=== PATIENT | female | born 1985 | race Caucasian/White ===

== ENCOUNTER 2017-03-23 15:18 | Outpatient (CLI) | payer BC ==
--- NOTE | 2017-03-23 16:15 | Non Stress Test Report ---
Non Stress Test Datetime Report Generated by CPN: 03/23/2017 16:15 DEMOGRAPHIC EGA NST: 39.2 INDICATION Indication for Study: Ordered by Provider VITAL SIGNS Temperature - NST: 98.0 Pulse - NST: 80 RESP - NST: 18 NBPSYS NST: 130 MONITORING Monitor Explained: Monitor Explained; Test Explained; Patient Verbalized Understanding Time on Monitor: 03/23/2017 15:30 Time off Monitor: 03/23/2017 16:09 NST Duration: 39 NST INTERVENTIONS NST Interventions: PO Hydration; Reposition Patient Physician Notified NST: C Nielsen CNM BABY A: [id number] BABY A Movement : Present Contraction Frequency : denies FHR Baseline : 120 Accelerations : 15X15 Decelerations : None Variability : Moderate 6-25bpm NST Review: Meets Criteria for Reactive NST NST Review and Verified By : Divine Lema RN NST Results: Reactive NST REPORT Report Trigger: Send Report
== END 2017-03-23 16:23 | disposition home or self-care (01) ==
LOC: LC 15:18
PROVIDERS: ATTEND Specialist
DX: O26.93 Pregnancy related conditions, unspecified, third trimester (principal); Z3A.39 39 weeks gestation of pregnancy
CPT/HCPCS: 59025

== ENCOUNTER 2017-03-24 19:58 | Inpatient (IN) | payer BC ==
[2017-03-24] MEDS ORDERED: RINGERS SOLUTION,LACTATED 1,000 ML IV PRN (20:15)
[2017-03-24] MEDS ORDERED: MAG HYDROX/AL HYDROX/SIMETH SUSP 30 ML UDCUP PO PRN (20:15)
[2017-03-24] MEDS ORDERED: ACETAMINOPHEN 325 MG TABLET PO PRN (20:15)
[2017-03-24] MEDS ORDERED: ZOLPIDEM TARTRATE 5 MG TABLET PO PRN (20:15)
[2017-03-24] MEDS ORDERED: OXYTOCIN/NORMAL SALINE 1,000 ML IV PRN (20:15)
[2017-03-24] MEDS ORDERED: DINOPROSTONE 10 MG VAGINAL INSERT.SR PV ONE (20:15)
[2017-03-24] MEDS ORDERED: RINGERS SOLUTION,LACTATED 300 ML IV ONE (20:15)
[2017-03-24 20:55] LABS: ABSOLUTE LYMPHOCYTES (AUTO) 1.9 10^3/uL (0.5-4.7); ABSOLUTE MONOCYTES (AUTO) 0.4 10^3/uL (0.1-1.4); ABSOLUTE NEUT (AUTO) 4.4 10^3/uL (1.7-8.2); BASOPHILS % (AUTO) 0.4 % (0-2); EOSINOPHILS % (AUTO) 0.6 % (0-6); HEMATOCRIT 37.2 % (36.0-47.0); HEMOGLOBIN 12.7 g/dL (12.0-15.5); HGB HCT DIFFERENCE 0.9; LYMPHOCYTES % (AUTO) 27.8 % (13-45); MEAN CORPUSCULAR HEMOGLOBIN 29.4 pg (27.0-33.4); MEAN CORPUSCULAR VOLUME 87 fl (80-97); MONOCYTES % (AUTO) 5.9 % (3-13); RED CELL DISTRIBUTION WIDTH 15.7 % (11.5-14.0); SEGMENTED NEUTROPHILS % (AUTO) 65.3 % (42-78); WHITE BLOOD COUNT 6.7 10^3/uL (4.0-10.5)
[2017-03-24 21:08] LABS: APPEARANCE,URINE CLOUDY; BILIRUBIN,URINE NEGATIVE (NEGATIVE); GLUCOSE, URINE 50 mg/dL (NEGATIVE); KETONES,URINE TRACE mg/dL (NEGATIVE); LEUKOCYTE ESTERASE,URINE NEGATIVE (NEGATIVE); NITRITE,URINE NEGATIVE (NEGATIVE); PROTEIN,URINE 100 mg/dL (NEGATIVE); URINE SPECIFIC GRAVITY 1.036; UROBILINOGEN,URINE NEGATIVE mg/dL (<2.0)
[2017-03-24 21:29] LABS: URINE BARBITURATES SCREEN NEGATIVE; URINE METHADONE SCREEN NEGATIVE; URINE OPIATES LOW NEGATIVE; URINE PHENCYCLIDINE SCREEN NEGATIVE
[2017-03-24] MEDS ORDERED: DINOPROSTONE 10 MG VAGINAL INSERT.SR ONE (21:34)
[2017-03-25 08:37] LABS: ABSOLUTE LYMPHOCYTES (AUTO) 1.5 10^3/uL (0.5-4.7); ABSOLUTE MONOCYTES (AUTO) 0.4 10^3/uL (0.1-1.4); ABSOLUTE NEUT (AUTO) 3.5 10^3/uL (1.7-8.2); BASOPHILS % (AUTO) 0.4 % (0-2); EOSINOPHILS % (AUTO) 0.4 % (0-6); HEMATOCRIT 37.3 % (36.0-47.0); HEMOGLOBIN 12.7 g/dL (12.0-15.5); HGB HCT DIFFERENCE 0.8; MEAN CORPUSCULAR HEMOGLOBIN 29.6 pg (27.0-33.4); MEAN CORPUSCULAR HGB CONC 34.1 g/dL (32.0-36.0); MEAN CORPUSCULAR VOLUME 87 fl (80-97); RED CELL DISTRIBUTION WIDTH 15.3 % (11.5-14.0); SEGMENTED NEUTROPHILS % (AUTO) 64.2 % (42-78); WHITE BLOOD COUNT 5.5 10^3/uL (4.0-10.5)
[2017-03-25 08:52] LABS: ALANINE AMINOTRANSFERASE 19 U/L (9-52); ALBUMIN 2.7 g/dL (3.5-5.0); ALKALINE PHOSPHATASE 144 U/L (38-126); ANION GAP 8 (5-19); ASPARTATE AMINO TRANSFERASE 18 U/L (14-36); BILIRUBIN,DIRECT 0.2 mg/dL (0.0-0.4); BILIRUBIN,TOTAL 0.3 mg/dL (0.2-1.3); BLOOD UREA NITROGEN 7 mg/dL (7-20); CALCIUM 8.8 mg/dL (8.4-10.2); CARBON DIOXIDE 21 mmol/L (22-30); CHLORIDE 109 mmol/L (98-107); CREATININE RESULT 0.59 mg/dL (0.52-1.25); GLUCOSE 95 mg/dL (75-110); LDH 342 U/L (313-618); POTASSIUM 3.9 mmol/L (3.6-5.0); SODIUM 137.6 mmol/L (137-145); TOTAL PROTEIN 5.3 g/dL (6.3-8.2); URIC ACID 5.5 mg/dL (2.5-6.2)
--- NOTE | 2017-03-25 08:54 | L&D Progress Notes ---
PROGRESS NOTES Datetime Report Generated by CPN: 03/25/2017 08:54 PROGRESS NOTE Impression: Gest. HTN/PreEclampsia/Eclampsia Procedures: Sterile Vag Exam Plan: Continue Present Management; Induction; Cervical Ripening Informed Consent Obtained: Vaginal Delivery; Section Delivery; Risks, Benefits and Alternatives Discussed Vital Signs : Reviewed Comment: 32 yo admitted for induction secondary to chronic vs. 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 denies any recent outbreaks EFW 8.5 lbs bps normotensive dtrs +2 no clonus minimal swelling cervidil removed plan to start pitocin after one hour and insert brock bulb catheter poc reviewed with pt and spouse VAGINAL EXAM Dilatation: 1 Dilatation: 0 Effacement: 25 Effacement: 0 Station: -2 Station: -3 MEMBRANES Membranes: Intact FETUS A FHR - Baseline: 120 Monitoring: External US Variability: Moderate 6-25bpm Accelerations: 15X15 Decelerations: None FHR Category: Category I : 39.4 : 39.4 Estimated Weight (gm): 3775 Presentation: Vertex SIGNATURE SIGNATURE: [id number] SIGNATURE: [id number] Assignment: Muna Snider MD Signature: with User ID: [email or web address] : with User ID: [email or web address]
[2017-03-25] MEDS ORDERED: MISOPROSTOL 0.1 MG TABLET ONE (10:01)
--- NOTE | 2017-03-25 10:24 | L&D Progress Notes ---
PROGRESS NOTES Datetime Report Generated by CPN: 03/25/2017 10:23 PROGRESS NOTE Procedures: Sterile Vag Exam Procedures- Other: brock bulb catheter Plan: Continue Present Management; Induction; Cervical Ripening Informed Consent Obtained: Vaginal Delivery; Induction of Labor; Risks, Benefits and Alternatives Discussed Vital Signs : Reviewed Comment: consent for mechanical ripening discussed and received from pt cytotec 50 mcg po x 1 brock bulb catheter placed 80/80 //-2 sterile speculum exam - no lesions noted cervix moderately soft abdomen nontender FHTs 130s average variability plan to recheck in 4 hours and start pitocin reviewed with pt all questions answered anticpate VAGINAL EXAM Dilatation: 2 Effacement: 30 Station: -2 MEMBRANES Membranes: Intact FETUS A Monitoring: External US Accelerations: 15X15 Decelerations: None FHR Category: Category I FETUS C SIGNATURE: [id number] Assignment: Muna Snider MD Signature: with User ID: [email or web address] : with User ID: [email or web address]
[2017-03-25] MEDS ORDERED: MISOPROSTOL 0.1 MG TABLET PO ONE (10:25)
[2017-03-25] MEDS ORDERED: OXYTOCIN/NORMAL SALINE 20 UNIT/1,000 ML RTUINJ ONE ×2 (13:27→20:28)
--- NOTE | 2017-03-25 14:56 | L&D Progress Notes ---
PROGRESS NOTES Datetime Report Generated by CPN: 03/25/2017 14:55 PROGRESS NOTE Impression: Normal Progression of Labor Procedures: Artificial ROM; Sterile Vag Exam Plan: Continue Present Management; Induction; Anticipate Vaginal Delivery Informed Consent Obtained: Vaginal Delivery; Induction of Labor; Risks, Benefits and Alternatives Discussed Vital Signs : Reviewed; Within Normal Limits Comment: Pt here for IOL at 39+4ega fro CHTN. HSV no lesions and no prodrome on admission. On valtrex at 36wks. GBS pos on PCN for GSB prophy. EFW 7.5-8#. Normal informaseq. Admitted last evening for IOL with cervidil then this am cytotec and Cooks Catheter. Cooks catheter came out at 1330. Cvx now and AROM performed. Will continue with position changes and anticipate . VAGINAL EXAM Dilatation: 5 Effacement: 70 Station: -2 Contractions: q2 MEMBRANES Membranes: Ruptured Amniotic Fluid Color: Clear FETUS A FHR - Baseline: 140 Monitoring: External US Variability: Moderate 6-25bpm Accelerations: 15X15 Decelerations: None FHR Category: Category I FETUS C SIGNATURE: [id number];[id number] Signature: with User ID: [email or web address]
[2017-03-25] MEDS ORDERED: PENICILLIN G-K 5 MILLION UNIT VIAL ONE ×2 (15:00→17:57)
[2017-03-25] MEDS ORDERED: EPHEDRINE SULFATE INJ 50 MG/1 ML AMPULE ONE (15:53)
[2017-03-25] MEDS ORDERED: BUPIVACAINE HCL 0.25 % INJ/PF (2.5 MG/1 ML) 30 ML VIAL ONE (15:54)
[2017-03-25] MEDS ORDERED: FENTANYL/BUPIVACAINE/NS/PF 200 MCG/100 ML RTUINJ EPI ONE (15:54)
[2017-03-25] MEDS ORDERED: MISOPROSTOL 0.2 MG TABLET ONE (20:28)
[2017-03-25] MEDS ORDERED: LIDOCAINE 1% INJ-PF (10 MG/ML) 30 ML SDV ONE (20:28)
[2017-03-26] MEDS ORDERED: DIBUCAINE 1% OINTMENT 28 GM TP PRN (01:18)
[2017-03-26] MEDS ORDERED: ZOLPIDEM TARTRATE 5 MG TABLET PO PRN ×2 (01:18→15:07)
[2017-03-26] MEDS ORDERED: MAGNESIUM HYDROXIDE SUSP 30 ML UDCUP PO PRN (01:18)
[2017-03-26] MEDS ORDERED: PROMETHAZINE HCL INJ 25 MG/1 ML VIAL IV PRN ×2 (01:18→15:11)
[2017-03-26] MEDS ORDERED: GLYCERIN/WITCH HAZEL LEAF 1 EACH MED..PAD TP PRN (01:18)
[2017-03-26] MEDS ORDERED: PROMETHAZINE HCL 25 MG SUPP.RECT PR PRN (01:18)
[2017-03-26] MEDS ORDERED: PSEUDOEPHEDRINE HCL 30 MG TABLET PO PRN (01:18)
[2017-03-26] MEDS ORDERED: NA PHOS,M-B/NA PHOS,DI-BA (ADULT) 133 ML ENEMA PR PRN (01:18)
[2017-03-26] MEDS ORDERED: MEASLES,MUMPS&RUBELLA VACC/PF 0.5 ML VIAL SUBCUT PRN ×2 (01:18→15:10)
[2017-03-26] MEDS ORDERED: DIPHENHYDRAMINE HCL 25 MG CAPSULE PO PRN (01:18)
[2017-03-26] MEDS ORDERED: ACETAMINOPHEN WITH CODEINE #3 TABLET PO PRN ×2 (01:18)
[2017-03-26] MEDS ORDERED: ACETAMINOPHEN 650 MG SUPP.RECT PR PRN (01:18)
[2017-03-26] MEDS ORDERED: OXYTOCIN/NORMAL SALINE 1,000 ML IV PRN (01:18)
[2017-03-26] MEDS ORDERED: PROMETHAZINE HCL 25 MG TABLET PO PRN (01:18)
[2017-03-26] MEDS ORDERED: DIPH/PERTUSS(ACELL)/TETANUS VAC/PF 0.5 ML SYR (>=10YO) IM PRN ×2 (01:18→15:09)
[2017-03-26] MEDS ORDERED: BENZOCAINE/MENTHOL AEROSOL SPRAY 56 ML TOP PRN (01:18)
[2017-03-26] MEDS ORDERED: IBUPROFEN 800 MG TABLET ONE (02:36)
--- NOTE | 2017-03-26 03:09 | Delivery Summary ---
Del Sum A-C Datetime Report Generated by CPN: 03/26/2017 03:09 DELIVERY PERSONNEL DELIVERY PERSONNEL: [id number] Delivery Doctor:: Muna Snider MD Labor and Delivery Nurse:: Dacia Solomon RNlehr stripper Nurse:: Demetrice Flowers RN Nursery Nurse:: Shayla Newell RN MSN Nursery Nurse:: Marie Grossman RN MATERNAL INFORMATION Delivery Anesthesia: Epidural Medications After Delivery: Pitocin Bolus-Please Comment Estimated Blood Loss (ml): 300 Maternal Complications: Prolonged Second Stage > 2 Hrs Provider Comments: VFI delivered in K[place] presentation. No nuchal cord. SHoulders and body delivered without difficulty. Cord doubly clamped and cut and to maternal abd for NRP. Placenta delivered intact spontaneously. Uterus empty and placenta intact. FF at U and good hemostasis post repair of 1st degree perineal laceration. APgars and weight pending. Mother and baby stable upon provider leaving the room. LABOR SUMMARY EDC: 03/28/2017 00:00 Attempted: No Labor Anesthesia: Epidural LABOR INFORMATION Reason for Induction: Gestational Hypertension Onset of Labor: 03/25/2017 17:14 Complete Dilatation: 03/25/2017 20:28 Cervical Ripening Agents: Cervidil; Cytotec @ Oxytocin: Induction Group B Beta Strep: positive Antibiotics # of Doses: 2 Antibiotics Time of Last Dose: 1819 Name of Antibiotic Given: Penicillin Steroids Given: None Reason Steroids Not Administered: Not Applicable MEMBRANES Membranes Rupture Method: Artificial Rupture of Membranes: 03/25/2017 14:43 Length of Rupture (hr): 10.20 Amniotic Fluid Color: Clear Amniotic Fluid Amount: Small Amniotic Fluid Odor: Normal STAGES OF LABOR Stage 1 hr: 3 Stage 1 min: 14 Stage 2 hr: 4 Stage 2 min: 27 Stage 3 hr: 0 Stage 3 min: 3 Total Time in Labor hr: 7 Total Time in Labor min: 44 VAGINAL DELIVERY Episiotomy: None Laceration Extension: First Degree Laceration Type: Perineal Laceration Repair: Yes Sponge Count Correct: N/A Sharps Count Correct: N/A CSECTION DELIVERY Primary Indication: N/A Secondary Indication: N/A CSection Incidence: N/A Labor: N/A Elective: N/A CSection Incision: N/A BABY A INFORMATION Infant Delivery Date/Time: 03/26/2017 00:55 Method of Delivery: Vaginal Born in Route : No : N/A Forceps: N/A Vacuum Extraction: N/A Shoulder Dystocia : No PRESENTATION/POSITION BABY A Presentation: Cephalic Cephalic Presentation: Vertex Vertex Position: Left Occipital Anterior Breech Presentation: N/A PLACENTA INFORMATION BABY A Placenta Delivery Time : 03/26/2017 00:58 Placenta Method of Delivery: Spontaneous Placenta Status: Delivered SCORES BABY A Heart Rate 1 min: >100 bpm Resp Effort 1 min: Good Cry Reflex Irritability 1 min: Cough or Sneeze or Pulls Away Muscle Tone 1 min: Active Motion Color 1 min: Body [place], Extremities Blue Resuscitation Effort 1 min: Tactile Stimulation SCORE 1 MIN: 9 Heart Rate 5 min: >100 bpm Resp Effort 5 min: Good Cry Reflex Irritability 5 min: Cough or Sneeze or Pulls Away Muscle Tone 5 min: Active Motion Color 5 min: Body [place], Extremities Blue Resuscitation Effort 5 min: Tactile Stimulation SCORE 5 MIN: 9 INFANT INFORMATION BABY A Gestational Age at Delivery: 39.4 Gestational Status: Full Term- 39- 40.6 Weeks Outcome : Liveborn Infant Condition : Stable Infant Sex: Female IDENTIFICATION BABY A Infant Verification Date/Time: 03/26/2017 01:22 ID Band Number: [id number] Mother's Name Verified: Yes Infant WEIGHT/LENGTH BABY A Infant Birthweight (gm): 3610 Infant Weight (lb): 7 Infant Weight (oz): 15 Infant Length (in): 21.75 Infant Length (cm): 55.25 CORD INFORMATION BABY A No. Cord Vessels: 3 Nuchal Cord : N/A Cord Blood Taken: Yes-For Storage (Mom's Blood type +) Suction: None ASSESSMENT BABY A Skin to Skin: Yes Skin to Skin Time (min): 60 SIGNATURES Signature: with User ID: [email or web address]
--- NOTE | 2017-03-26 03:14 | Admission Physical ---
Datetime Report Generated by CPN: 03/26/2017 03:14 CURRENT ADMISSION Chief Complaint: Scheduled Induction of Labor Indication for Induction: Gestational HTN Admit Plan: Admit to Unit; Initiate Labor Induction Protocol ALLERGIES Medication Allergies: No Latex: No Latex Allergies OBSTETRICAL HISTORY EDC: 03/28/2017 00:00 : 1 Para: 0 Term: 0 : 0 SAB: 0 IAB: 0 Livin Gestational Diabetes: No Rh Sensitization: No Incompetent Cervix: No NATE: No Infertility: No ART Treatment: No Uterine Anomaly: No IUGR: No Hx Previous C/S: No Macrosomia: No Hx Loss/Stillborn: No PIH: No Hx : No Placenta Previa/Abruption: No Depression/PP Depression: No PTL/PROM: No Post Hemorrhage: No Current Procedures: Ultrasound SEE RECORDS Alcohol: No Marijuana : No Cocaine: No Other Illicit Drugs: No Cigarettes: Never Smoker. 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 is taking valtrex PHYSICAL EXAM General: Normal HEENT: Normal Neurologic: Normal Thyroid: Deferred Heart: Normal Lungs: Normal Breast: Deferred Back: Normal Abdomen: Normal Genitourinary Exam: Normal Extremities: Normal DTRs: Normal Pelvic Type: Adequate Vital Signs: Reviewed; Within Normal Limits VAGINAL EXAM Dilatation: 5 Dilatation: 2 Dilatation: 1 Dilatation: 0 Effacement: 70 Effacement: 30 Effacement: 25 Effacement: 0 Station: -2 Station: -2 Station: -2 Station: -3 Contraction Comments: q2 MEMBRANES Membranes: Ruptured Membranes: Intact Membranes: Intact Amniotic Fluid Color: Clear FETUS A EGA: 39.4 Monitoring: External US FHR- Baseline: 125 Variability: Moderate 6-25bpm Accelerations: 15X15 Decelerations: None FHR Category: Category I Estimated Weight (gm): 3775 Presentation: Vertex Admit Comment: PCN for +GBS PLANS FOR LABOR AND DELIVERY Labor and Delivery: None Pain Management: Epidural Other Pain Management Plans: Wants to try natural, if too much pain-Epidural. Feeding Preference: Breast Benefit of Breast Feed Discussed: Yes Circumcision: N/A INFORMED CONSENT Informed Consent Obtained: Vaginal Delivery; Induction of Labor; Risks, Benefits and Alternatives Discussed Informed Consent Obtained: Vaginal Delivery; Induction of Labor; Risks, Benefits and Alternatives Discussed Informed Consent Obtained: Vaginal Delivery; Section Delivery; Risks, Benefits and Alternatives Discussed Signature: with User ID: [email or web address]
[2017-03-26] MEDS: IBUPROFEN 800 MG TABLET PO SCH ×3 (06:10→21:52)
--- NOTE | 2017-03-26 08:53 | PDOC PROGRESS REPORT ---
Subjective-OB Subjective: Post Delivery Day: 32 year old. Denies any needs at this time Doing well, no c/o, voiding, normal lochia, breast feeding, feeling well Physical Exam (OB) Vital Signs: Temp Pulse Resp BP Pulse Ox 97.9 F 87 20 126/81 H 99 03/26/17 03:18 03/26/17 03:18 03/26/17 03:18 03/26/17 03:18 03/26/17 03:18 Intake & Output 03/25/17 03/26/17 03/27/17 06:59 06:59 06:59 Weight 83.2 kg - Lochia Lochia Amount: Small 10-25 ml Lochia Color: Rubra/Red - Abdomen Description: Soft, Round Hernia Present: No Fundal Description: Firm, Midline Fundal Height: u/u - u/2 Objective-Diagnostic Laboratory: 03/25/17 08:26 03/25/17 08:26 03/25/17 08:26 Sodium 137.6 Potassium 3.9 Chloride 109 H Carbon Dioxide 21 L Anion Gap 8 BUN 7 Creatinine 0.59 Est GFR ( Amer) > 60 Est GFR (Non-Af Amer) > 60 Glucose 95 Uric Acid 5.5 Calcium 8.8 Total Bilirubin 0.3 AST 18 ALT 19 Alkaline Phosphatase 144 H Total Protein 5.3 L Albumin 2.7 L Assessment and Plan(PN) - Assessment and Plan (1) Gestational [-induced] hypertension without significant proteinuria , unspecified trimester Qualifiers: Trimester: unspecified trimester Is this a current diagnosis for this admission?: Yes (3) Normal vaginal delivery Is this a current diagnosis for this admission?: Yes - Time Spent with Patient Time with patient: Less than 15 minutes Medications reviewed and adjusted accordingly: Yes - Disposition Anticipated Discharge: Home Within: within 48 hours
[2017-03-26] MEDS: SENNOSIDES/DOCUSATE 8.6-50 MG 1 EACH TABLET PO SCH (10:29)
[2017-03-26] MEDS: FERROUS SULFATE 325 MG TABLET PO SCH ×2 (10:30→18:14)
[2017-03-26] MEDS: PRENATAL VITAMIN W-O CA NO5/FE FUMARATE/FA CAPSULE PO SCH (10:30)
[2017-03-26] MEDS: DOCUSATE SODIUM 100 MG CAPSULE PO SCH ×2 (10:30→18:15)
[2017-03-26] MEDS: FAMOTIDINE 20 MG TABLET PO SCH ×2 (10:54→21:51)
[2017-03-27] MEDS: IBUPROFEN 800 MG TABLET PO SCH ×3 (06:56→21:51)
[2017-03-27 08:01] LABS: HEMATOCRIT 33.2 % (36.0-47.0); HEMOGLOBIN 11.2 g/dL (12.0-15.5); HGB HCT DIFFERENCE 0.4; MEAN CORPUSCULAR HEMOGLOBIN 29.4 pg (27.0-33.4); MEAN CORPUSCULAR HGB CONC 33.8 g/dL (32.0-36.0); MEAN CORPUSCULAR VOLUME 87 fl (80-97); RED BLOOD COUNT 3.81 10^6/uL (3.72-5.28)
[2017-03-27] MEDS: PRENATAL VITAMIN W-O CA NO5/FE FUMARATE/FA CAPSULE PO SCH (09:20)
[2017-03-27] MEDS: DOCUSATE SODIUM 100 MG CAPSULE PO SCH ×2 (09:20→17:29)
[2017-03-27] MEDS: SENNOSIDES/DOCUSATE 8.6-50 MG 1 EACH TABLET PO SCH (09:20)
[2017-03-27] MEDS: FERROUS SULFATE 325 MG TABLET PO SCH ×2 (09:20→17:29)
[2017-03-27] MEDS: FAMOTIDINE 20 MG TABLET PO SCH ×2 (09:21→21:52)
--- NOTE | 2017-03-27 09:27 | PDOC PROGRESS REPORT ---
Subjective-OB Subjective: Post Delivery Day:1 32 year old. Denies any needs at this time, lochia is stable, pain well controlled, voiding without difficulty. Physical Exam (OB) Vital Signs: Temp Pulse Resp BP Pulse Ox 97.8 F 72 18 137/90 H 100 03/27/17 08:00 03/27/17 08:00 03/27/17 08:00 03/27/17 08:00 03/27/17 08:00 Intake & Output 03/26/17 03/27/17 03/28/17 06:59 06:59 06:59 Intake Total 300 Output Total 1000 Balance -700 - PIH/Pre-Eclampsia DTR's: 1 + Clonus: Negative Headache: Absent Epigastric Pain: No Visual Changes: No - Lochia Lochia Amount: Small 10-25 ml Lochia Color: Rubra/Red - Abdomen Description: Soft, Round Hernia Present: No Fundal Description: Firm, Midline Fundal Height: u/u - u/2 Objective-Diagnostic Laboratory: 03/27/17 07:20 03/25/17 08:26 03/27/17 07:20 WBC 8.0 RBC 3.81 Hgb 11.2 L Hct 33.2 L MCV 87 MCH 29.4 MCHC 33.8 RDW 16.0 H Plt Count 195 Assessment and Plan(PN) - Assessment and Plan (1) Gestational [-induced] hypertension without significant proteinuria , unspecified trimester Qualifiers: Trimester: unspecified trimester Is this a current diagnosis for this admission?: YesPlan: monitor bp and s/sx (2) History of TEE positive for HSV Is this a current diagnosis for this admission?: YesPlan: valtex (3) Normal vaginal delivery Is this a current diagnosis for this admission?: YesPlan: routine pp care - Time Spent with Patient Time with patient: Less than 15 minutes Critical Time spent with patient: Less than 15 minutes Medications reviewed and adjusted accordingly: Yes - Disposition Anticipated Discharge: Home Within: within 24 hours
[2017-03-28] MEDS: IBUPROFEN 800 MG TABLET PO SCH ×2 (05:00→13:20)
--- NOTE | 2017-03-28 09:25 | PDOC DISCHARGE SUMMARY ---
Final Diagnosis Discharge Date: 03/28/17 - Final Diagnosis (1) Gestational [-induced] hypertension without significant proteinuria , unspecified trimester Is this a current diagnosis for this admission?: Yes (2) History of TEE positive for HSV Is this a current diagnosis for this admission?: Yes (3) Normal vaginal delivery Is this a current diagnosis for this admission?: Yes Discharge Data - Discharge Medication Home Medications: Valacyclovir HCl [Valacyclovir] 1,000 mg PO BID #20 tablet 05/18/16 Vit/Iron Fumarate/FA [ Tablet] 1 tab PO DAILY 03/24/17 Reason(s) for Admission: Induction of Labor, PIH, Group B Strep Positive Procedures: NST Intrapartum Procedure(s): Spontaneous Vaginal Delivery Complication(s): Laceration-Perineal Laceration-Degree: 1st - Data Baby 1 Female at 1 minute: 9 at 5 minutes: 9 Weight: 3610 kg Home with Mother: Yes Complications: No - Diagnosis Test Laboratory: Temp Pulse Resp BP Pulse Ox 98.5 F 80 16 139/89 H 99 03/28/17 07:25 03/28/17 07:25 03/28/17 07:25 03/28/17 07:25 03/28/17 07:25 03/24/17 03/24/17 03/25/17 20:12 20:36 08:26 RBC 4.30 4.30 Hgb 12.7 12.7 Hct 37.2 37.3 Urine Opiates Screen NEGATIVE 03/27/17 07:20 RBC 3.81 Hgb 11.2 L Hct 33.2 L Urine Opiates Screen - Discharge information/Instructions Discharge Activity: Activity As Tolerated, Pelvic Rest, No tub bath Discharge Diet: Regular Disposition: HOME, SELF-CARE Follow up with: [facility] in: 1, Weeks
[2017-03-28] MEDS: FERROUS SULFATE 325 MG TABLET PO SCH ×2 (09:37→17:18)
[2017-03-28] MEDS: PRENATAL VITAMIN W-O CA NO5/FE FUMARATE/FA CAPSULE PO SCH (09:38)
[2017-03-28] MEDS: FAMOTIDINE 20 MG TABLET PO SCH (09:38)
[2017-03-28] MEDS: SENNOSIDES/DOCUSATE 8.6-50 MG 1 EACH TABLET PO SCH (09:38)
[2017-03-28] MEDS: DOCUSATE SODIUM 100 MG CAPSULE PO SCH ×2 (09:38→17:18)
[2017-03-28 15:58] VITALS: BP 134/83
== END 2017-03-28 18:25 | disposition home or self-care (01) | DRG 774 ==
LOC: LR 19:58 → 2S 03-26 03:13
PROVIDERS: ADMIT Obstetrics & Gynecology; ATTEND Obstetrics & Gynecology
PROC: 3E0P7GC Introduction of Other Therapeutic Substance into Female Reproductive, Via Natural or Artificial Opening (ICD-10-PCS; 2017-03-24)
PROC: 3E033VJ Introduction of Other Hormone into Peripheral Vein, Percutaneous Approach (ICD-10-PCS; 2017-03-25)
PROC: 10E0XZZ Delivery of Products of Conception, External Approach (ICD-10-PCS; principal; 2017-03-26)
PROC: 4A1HXCZ Monitoring of Products of Conception, Cardiac Rate, External Approach (ICD-10-PCS; 2017-03-26)
DX: O13.4 Gestational [pregnancy-induced] hypertension without significant proteinuria, complicating childbirth (principal); O98.32 Other infections with a predominantly sexual mode of transmission complicating childbirth; O70.0 First degree perineal laceration during delivery; O63.1 Prolonged second stage (of labor); O99.824 Streptococcus B carrier state complicating childbirth; A60.00 Herpesviral infection of urogenital system, unspecified; Z37.0 Single live birth; Z3A.39 39 weeks gestation of pregnancy; Z79.899 Other long term (current) drug therapy
CPT/HCPCS: 36415; 80053; 80307; 81005; 83615; 84550; 85025; 85027; 86592; 86850; 86900; 86901; C1726; J2540; J2590; J3490

== ENCOUNTER 2018-12-08 07:45 | Inpatient (IN) | payer BC ==
[~2018-12-08 07:45] MED LIST: LACTATED RINGERS 1000 ML IV PRN; LIDOCAINE 0.5% INJ-PF (5 MG/ML) 50 ML SDV SUBCUT PRN
[2018-12-08] MEDS ORDERED: CEFAZOLIN 2 GM/D5W RTU 2 GM/50 ML RTUPB IV PRN (08:10)
[2018-12-08] MEDS ORDERED: RINGERS SOLUTION,LACTATED 1,000 ML IV ONE (08:15)
[2018-12-08] MEDS ORDERED: SIMETHICONE 80 MG TAB.CHEW PO PRN (09:20)
[2018-12-08] MEDS ORDERED: HYDROMORPHONE HCL INJ/PF 2 MG/ML AMPULE IV PRN (09:20)
[2018-12-08] MEDS ORDERED: RINGERS SOLUTION,LACTATED 1,000 ML IV PRN (09:20)
[2018-12-08] MEDS ORDERED: OXYTOCIN/NORMAL SALINE 20 UNIT/1,000 ML RTUINJ IV PRN (09:20)
[2018-12-08] MEDS ORDERED: ACETAMINOPHEN 1,000 MG/100 ML RTUPB IV PRN (09:20)
[2018-12-08] MEDS ORDERED: ACETAMINOPHEN 325 MG TABLET PO PRN (09:20)
[2018-12-08] MEDS ORDERED: MEASLES,MUMPS&RUBELLA VACC/PF 0.5 ML VIAL SUBCUT PRN (09:20)
[2018-12-08] MEDS ORDERED: OXYCODONE-ACETAMINOPHEN 5-325 MG TABLET PO PRN ×4 (09:20→10:11)
[2018-12-08] MEDS ORDERED: PROMETHAZINE HCL INJ 25 MG/1 ML VIAL IV PRN ×3 (09:20→10:11)
[2018-12-08] MEDS ORDERED: DIPH/PERTUSS(ACELL)/TETANUS VAC/PF 0.5 ML SYR (>=10YO) IM PRN (09:20)
[2018-12-08] MEDS ORDERED: PROPOFOL INJ 200 MG/20 ML VIAL IV ONE (09:21)
[2018-12-08] MEDS ORDERED: OXYTOCIN/NORMAL SALINE 20 UNIT/1,000 ML RTUINJ ONE (09:22)
[2018-12-08] MEDS ORDERED: FENTANYL CITRATE INJ/PF 100 MCG/2 ML AMPUL ONE (09:22)
[2018-12-08] MEDS ORDERED: EPHEDRINE SULFATE INJ 50 MG/1 ML AMPULE ONE (09:22)
[2018-12-08] MEDS ORDERED: MIDAZOLAM 2 MG/2 ML INJ ONE (09:22)
[2018-12-08 09:48] LABS: ABSOLUTE LYMPHOCYTES (AUTO) 1.4 10^3/uL (0.5-4.7); ABSOLUTE MONOCYTES (AUTO) 0.3 10^3/uL (0.1-1.4); ABSOLUTE NEUT (AUTO) 4.8 10^3/uL (1.7-8.2); BASOPHILS % (AUTO) 0.4 % (0-2); EOSINOPHILS % (AUTO) 0.4 % (0-6); HEMOGLOBIN 10.6 g/dL (12.0-15.5); LYMPHOCYTES % (AUTO) 21.8 % (13-45); MEAN CORPUSCULAR HEMOGLOBIN 24.7 pg (27.0-33.4); MEAN CORPUSCULAR VOLUME 75 fl (80-97); MONOCYTES % (AUTO) 4.9 % (3-13); PLATELET COUNT 272 10^3/uL (150-450); RED BLOOD COUNT 4.28 10^6/uL (3.72-5.28); RED CELL DISTRIBUTION WIDTH 15.8 % (11.5-14.0); SEGMENTED NEUTROPHILS % (AUTO) 72.5 % (42-78); TOTAL CELLS COUNTED % (AUTO) 100 %; WHITE BLOOD COUNT 6.6 10^3/uL (4.0-10.5)
[2018-12-08 10:00] LABS: URINE AMPHETAMINES SCREEN NEGATIVE; URINE BARBITURATES SCREEN NEGATIVE; URINE BENZODIAZEPINES SCREEN NEGATIVE; URINE COCAINE SCREEN NEGATIVE; URINE MARIJUANA (THC) SCREEN NEGATIVE; URINE METHADONE SCREEN NEGATIVE; URINE PHENCYCLIDINE SCREEN NEGATIVE
[2018-12-08 10:01] LABS: APPEARANCE,URINE CLOUDY; BILIRUBIN,URINE NEGATIVE (NEGATIVE); COLOR,URINE YELLOW; GLUCOSE, URINE NEGATIVE (NEGATIVE); KETONES,URINE TRACE mg/dL (NEGATIVE); LEUKOCYTE ESTERASE,URINE NEGATIVE (NEGATIVE); NITRITE,URINE NEGATIVE (NEGATIVE); PROTEIN,URINE NEGATIVE (NEGATIVE); URINE SPECIFIC GRAVITY 1.021; UROBILINOGEN,URINE NEGATIVE mg/dL (<2.0)
[2018-12-08] MEDS ORDERED: FENTANYL CITRATE INJ/PF 100 MCG/2 ML AMPUL IV PRN ×3 (10:11)
[2018-12-08] MEDS ORDERED: MEPERIDINE HCL/PF INJ 25 MG/1 ML DISP.SYRIN IV PRN (10:11)
[2018-12-08] MEDS ORDERED: DIPHENHYDRAMINE HCL 50 MG/ML VIAL IV PRN (10:11)
--- NOTE | 2018-12-08 10:59 | PDOC DELIVERY SUMMARY ---
Delivery Summary - Maternal Hx : II Hx # Term Pregnancies: 1 ANIVAL: 12/02/18 Gestational Age: 40+6 Ruptured Membranes: AROM Time of Rupture: 10:18 Fluids: Clear - Delivery Presentation: Vertex Heart Rate Monitoring: Done Pre-Operatively Support Person Present: Yes Location: OR : Scheduled, Primary Placenta: Within Normal Limits Delivery of Placenta Date: 12/08/18 Delivery of Placenta Time: 10:20 - Medications Type of Anesthesia:: Spinal - Infant Assess and Care Male Delivery of Date: 12/08/18 Delivery of Time: :19 at 1 minute: 9 at 5 minutes: 9 Preprinted Number On Band: [id number] Infant Skin to Skin: Yes Skin to Skin (Mins): 10 [facility] Nursery RN: SHOAIB RIVERA MD: AMOL FRIEND
[2018-12-08] MEDS ORDERED: KETOROLAC TROMETHAMINE INJ/PF 30 MG/1 ML SDV IV SCH (11:00)
--- NOTE | 2018-12-08 11:02 | Operative Report ---
Operative Report DATE OF SURGERY: 12/08/18 PREOPERATIVE DIAGNOSIS: macrosomia polyhydramnios POSTOPERATIVE DIAGNOSIS: Same OPERATION: Primary via low transverse uterine incision SURGEON: AMOL FRIEND ANESTHESIA: Spinal TISSUE REMOVED OR ALTERED: Placenta COMPLICATIONS: None ESTIMATED BLOOD LOSS: 250 cc INTRAOPERATIVE FINDINGS: Viable male weight 10 pounds 2 ounces normal uterus tubes and ovaries. PROCEDURE: Patient was taken to the OR and placed in supine position after her spinal anesthesia. She is prepared and draped in sterile fashion. Martin was placed for drainage of the bladder. The baby's head could be palpated well above the pubic symphysis. Low transverse incision was made and carried down the level of the fascia. The fascial incision was made with knife and extended bilaterally with curved Johnson scissors. The fascia was off the rectus muscles using sharp and blunt dissection. The rectus muscles are in the midline. The peritoneum was entered without incident. Bladder blade was placed in uterine segment was identified. A low transverse incision was made creating a bladder flap. Bladder blade was placed low transverse uterine incision was made with the knife and extended with fingertips. The baby was delivered with some fundal pressure. Mouth and nose were suctioned free. The cord is doubly clamped and cut. Baby is passed off to the humidifier operator in attendance. The placenta was manually extracted with trailing membranes. The uterus was externalized wrapped in a moist lap sponge. Uterine contents wiped free. Uterus was closed with a running locking layer of 0 chromic suture using the second layer to imbricate the first completing a double layer closure of the uterus. The serosa was closed with a running 2-0 chromic stitch. The pelvis was irrigated and suctioned free of fluid the uterus was replaced in the abdomen. The abdominal wall peritoneum was closed with running 2-0 chromic stitch. Fascia was closed with a running 0 Vicryl in 2 segments. Evan's layer was brought together with 0 plain gut stitch and the skin was closed with running subcuticular 4-0 undyed Vicryl stitch. The wound was dressed mother and baby did well.
[2018-12-08] MEDS: LEVOTHYROXINE SODIUM 0.05 MG TABLET PO SCH (14:06)
[2018-12-08] MEDS: DOCUSATE SODIUM 100 MG CAPSULE PO SCH ×2 (14:06→17:09)
[2018-12-08] MEDS: PRENATAL VITAMIN W DHA CAPSULE PO SCH (14:06)
[2018-12-08] MEDS: KETOROLAC TROMETHAMINE INJ/PF 30 MG/1 ML SDV IV SCH (22:43)
[2018-12-09] MEDS: KETOROLAC TROMETHAMINE INJ/PF 30 MG/1 ML SDV IV SCH (05:29)
[2018-12-09] MEDS: IBUPROFEN 800 MG TABLET PO SCH ×3 (07:00→18:26)
--- NOTE | 2018-12-09 09:40 | PDOC PROGRESS REPORT ---
Subjective Progress Note for:: 12/09/18 Subjective:: Patient states that she feels good; pain controlled. Her lochia is decreasing. Patient denies chest pain, shortness of breath, fever/chills or nausea/vomiting. She is ambulating voiding without difficulty. Reason For Visit: /C SECTION Physical Exam - Physical Exam Vital Signs: Temp Pulse Resp BP Pulse Ox 98.1 F 102 H 18 117/80 99 12/09/18 08:06 12/09/18 08:06 12/09/18 08:06 12/09/18 08:06 12/09/18 08:06 Intake & Output 12/08/18 12/09/18 12/10/18 06:59 06:59 06:59 Intake Total 1890 Output Total 5202 Balance -3312 Weight 78.018 kg General appearance: PRESENT: no acute distress Respiratory exam: PRESENT: accessory muscle use Cardiovascular exam: PRESENT: RRR GI/Abdominal exam: PRESENT: Katz's sign, soft - Incision: Clean/dry/intact; no erythema Extremities exam: ABSENT: calf tenderness, clubbing, full ROM, joint swelling, pedal edema, tenderness, +1 edema, +2 edema, other Result Laboratory Results: 12/08/18 08:54 12/08/18 12/08/18 12/08/18 08:54 08:54 09:06 WBC 6.6 RBC 4.28 Hgb 10.6 L Hct 32.0 L MCV 75 L MCH 24.7 L MCHC 33.0 RDW 15.8 H Plt Count 272 Seg Neutrophils % 72.5 Lymphocytes % 21.8 Monocytes % 4.9 Eosinophils % 0.4 Basophils % 0.4 Absolute Neutrophils 4.8 Absolute Lymphocytes 1.4 Absolute Monocytes 0.3 Absolute Eosinophils 0.0 Absolute Basophils 0.0 Urine Color YELLOW Urine Appearance CLOUDY Urine pH 6.0 Ur Specific [place] 1.021 Urine Protein NEGATIVE Urine Glucose (UA) NEGATIVE Urine Ketones TRACE H Urine Blood NEGATIVE Urine Nitrite NEGATIVE Ur Leukocyte Esterase NEGATIVE Urine WBC (Auto) 2 Urine RBC (Auto) 1 Blood Type A POSITIVE Antibody Screen NEGATIVE Assessment & Plan - Diagnosis (1) Gestational [-induced] hypertension without significant proteinuria, unspecified trimester Qualifiers: Trimester: unspecified trimester Qualified Code(s): O13.9 - Gestational [-induced] hypertension without significant proteinuria, unspecified trimester Is this a current diagnosis for this admission?: No (2) Status post primary low transverse section Is this a current diagnosis for this admission?: Yes (3) Anemia, antepartum Is this a current diagnosis for this admission?: Yes (4) Hypothyroid in , antepartum Is this a current diagnosis for this admission?: Yes - Time Time Spent with patient: Less than 15 minutes - Plan Summary Plan Summary: 1. Continue /post op care
[2018-12-09] MEDS: DOCUSATE SODIUM 100 MG CAPSULE PO SCH ×2 (10:40→18:26)
[2018-12-09] MEDS: PRENATAL VITAMIN W DHA CAPSULE PO SCH (10:47)
[2018-12-09] MEDS: LEVOTHYROXINE SODIUM 0.05 MG TABLET PO SCH (10:48)
[2018-12-10] MEDS: IBUPROFEN 800 MG TABLET PO SCH ×3 (08:17→14:39)
[2018-12-10] MEDS: PRENATAL VITAMIN W DHA CAPSULE PO SCH (10:42)
[2018-12-10] MEDS: LEVOTHYROXINE SODIUM 0.05 MG TABLET PO SCH (10:42)
[2018-12-10] MEDS: DOCUSATE SODIUM 100 MG CAPSULE PO SCH (10:42)
--- NOTE | 2018-12-10 11:01 | PDOC DISCHARGE SUMMARY ---
Final Diagnosis Discharge Date: 12/10/18 - Final Diagnosis (1) Hypothyroid in , antepartum Is this a current diagnosis for this admission?: Yes (2) S/P primary low transverse Is this a current diagnosis for this admission?: Yes Discharge Data - Discharge Medication Prescriptions: Ibuprofen [Motrin 800 mg Tablet] 800 mg PO Q8HP PRN #60 tablet PRN Reason: Oxycodone HCl/Acetaminophen [Percocet 5-325 mg Tablet] 1 tab PO Q4HP PRN #30 tablet PRN Reason: Home Medications: Vit/Iron Fum/Folic AC [ Tablet] 1 tab PO DAILY 03/24/17 Ibuprofen [Motrin 800 mg Tablet] 800 mg PO Q8HP PRN #60 tablet 12/10/18 Oxycodone HCl/Acetaminophen [Percocet 5-325 mg Tablet] 1 tab PO Q4HP PRN #30 tablet 12/10/18 Procedures: NST Intrapartum Procedure(s): : Low Cervical, Transverse - Diagnosis Test Laboratory: Temp Pulse Resp BP Pulse Ox 98.3 F 93 17 118/82 100 12/10/18 08:01 12/10/18 08:01 12/10/18 08:01 12/10/18 08:01 12/10/18 08:01 12/08/18 12/08/18 08:54 09:06 RBC 4.28 Hgb 10.6 L Hct 32.0 L Urine Opiates Screen NEGATIVE - Discharge information/Instructions Discharge Activity: Balance Activity w/Rest, No Lifting/Push/Pulling, Pelvic Rest, No tub bath Discharge Diet: Regular Disposition: HOME, SELF-CARE Follow up with: [facility] in: 1, Weeks
[2018-12-10 11:44] LABS: ABSOLUTE EOSINOPHILS # (AUTO) 0.1 10^3/uL (0.0-0.6); ABSOLUTE LYMPHOCYTES (AUTO) 1.4 10^3/uL (0.5-4.7); ABSOLUTE MONOCYTES (AUTO) 0.4 10^3/uL (0.1-1.4); BASOPHILS % (AUTO) 0.4 % (0-2); EOSINOPHILS % (AUTO) 0.9 % (0-6); HEMATOCRIT 30.2 % (36.0-47.0); HEMOGLOBIN 9.9 g/dL (12.0-15.5); LYMPHOCYTES % (AUTO) 12.8 % (13-45); MEAN CORPUSCULAR HEMOGLOBIN 24.8 pg (27.0-33.4); MEAN CORPUSCULAR HGB CONC 32.8 g/dL (32.0-36.0); MEAN CORPUSCULAR VOLUME 76 fl (80-97); MONOCYTES % (AUTO) 3.4 % (3-13); PLATELET COUNT 354 10^3/uL (150-450); RED BLOOD COUNT 3.99 10^6/uL (3.72-5.28); SEGMENTED NEUTROPHILS % (AUTO) 82.5 % (42-78); TOTAL CELLS COUNTED % (AUTO) 100 %; WHITE BLOOD COUNT 10.9 10^3/uL (4.0-10.5)
[2018-12-10 12:52] VITALS: BP 120/80
== END 2018-12-10 15:29 | disposition home or self-care (01) | DRG 807 ==
LOC: 2S 07:45 → EDSTATUS 09:30
PROVIDERS: ADMIT Obstetrics & Gynecology; ATTEND Obstetrics & Gynecology
PROC: 10E0XZZ Delivery of Products of Conception, External Approach (ICD-10-PCS; principal; 2018-12-08 09:30)
DX: O40.3XX0 Polyhydramnios, third trimester, not applicable or unspecified (principal); O36.63X0 Maternal care for excessive fetal growth, third trimester, not applicable or unspecified; O99.284 Endocrine, nutritional and metabolic diseases complicating childbirth; E03.9 Hypothyroidism, unspecified; Z79.899 Other long term (current) drug therapy; Z37.0 Single live birth; O99.02 Anemia complicating childbirth; D64.9 Anemia, unspecified; Z3A.40 40 weeks gestation of pregnancy
CPT/HCPCS: 1961; 36415; 59025; 80307; 81001; 85025; 86850; 86900; 86901; 94799; J1885; J2250; J2590; J2704; J3010; J3490; J7120